=== PATIENT | male | born 1995 ===

== ENCOUNTER 2023-09-12 17:00 | Inpatient (IN) ==
[2023-09-12] MEDS ORDERED: Al Hydrox/Mg Hydrox/Simet LIQ 30 ML UDC PO PRN (18:04)
[2023-09-13 08:51] LABS: HDL Cholesterol 51.6 mg/dL
[2023-09-13] MEDS: Vitamin THERAPEUTIC TAB PO SCH (09:10)
[2023-09-14] MEDS: Vitamin THERAPEUTIC TAB PO SCH (08:32)
[2023-09-18] MEDS ORDERED: ARIPiprazole LAUROXIL INITIO 675 MG/2.4 ML SYRINGE IM ONE (11:26)
[2023-09-18] MEDS ORDERED: ARIPiprazole LAUROXIL 441 MG/1.6 ML SYRINGE IM ONE (11:26)
== END 2023-09-20 17:00 | disposition home or self-care (01) | DRG 885 ==
LOC: BSU 18:03
PROVIDERS: ADMIT Psychiatry & Neurology Psychiatry; ATTEND Psychiatry & Neurology Psychiatry